=== PATIENT | female | born 1940 | race Caucasian/White ===

== ENCOUNTER 2022-02-22 00:48 | Inpatient (IN) | payer MEDICARE, BC, SELFPAY ==
[2022-02-22] VITALS (9 sets, daily range): BP systolic 113–135; BP diastolic 50–63; PULSE 60–75; RESP 16–18; TEMP 36.4–36.9; O2SAT 91–97; BMI 27.5
--- NOTE | 2022-02-22 00:57 | PC.NURSE ---
PT ARRIVED TO FLOOR VIA STRETCHER @ [id number]
--- NOTE | 2022-02-22 01:35 | EXP.HP ---
History of Present Illness *Admission Date: 02/22/22 *Reason for visit:: NSTEMI *History of present illness: With past medical history of recent diagnosis of adenocarcinoma, DVT on Paresh who presents as a transfer from [facility] for NSTEMI. She reportedly was talking on the phone this evening around 8:30 PM and noticed some left hand shaking with some difficulty speaking. She reports that the symptoms resolved within minutes. She did have another episode of this and was noted by her family to be leaning towards the left when she was walking. At that point she presented to the outside hospital. Outside hospital imaging negative for hemorrhagic or ischemic event on Noncon CT of the head. She did note to have a elevated troponin on the high-sensitivity scale of 139. Dr. Padron was consulted and recommended transfer here for further evaluation. She received 300 of Plavix at the outside hospital and transferred here for further cardiac evaluation. On my exam patient is awake alert and oriented without any distress. She does endorse same history of dysarthria and left hand weakness around 8 PM. She denies any chest pain or shortness of breath. She does endorse mild epigastric pain that is typical to her that reoccurred this evening but has subsided. She has very close follow-up with the [facility] regarding her adenocarcinoma. She was supposed to have a cardiology appointment tomorrow. She is scheduled for a PET scan and an MRI of her brain for cancer staging on March 25. Given patient's neurological symptoms that began this admission. Will obtain repeat labs now to see if renal status will support CTA of the head to rule out LVO. Will obtain brain MRI in a.m. Regarding cardiology services, Dr. Padron is aware patient and will see patient in the morning. He request patient to be placed on heparin drip and be made n.p.o. She is admitted to the hospitalist service for further evaluation management. [facility] Medical History (Updated 02/22/22 @ 08:01 by AMY Zhang) Adenocarcinoma DVT (deep venous thrombosis) High blood pressure Hypercholesteremia Neuropathy Non-Hodgkin lymphoma Pneumonia Pulmonary embolism Rheumatoid arthritis UTI (urinary tract infection) Surgical History (Updated 02/22/22 @ 04:15 by Dalia Guerrero RN) History of colon resection History of stem cell transplant History of stem cell transplant Family History (Updated 02/22/22 @ 04:14 by Dalia Guerrero RN) Father Family history of myocardial infarction Social History (Updated 02/22/22 @ 04:13 by Dalia Guerrero RN) Smoking Status: Former smoker alcohol intake: never current occupational status: other Travel in the last 8 weeks: None Review of Systems Review of Systems Review of systems:: pertinent systems reviewed and negative unless documented below Meds Home Medications and Allergies Home Medications Medication Instructions Recorded Confirmed Type albuterol sulfate 90 mcg/actuation 2 puff inhalation Q4HP PRN 02/22/22 02/22/22 History aerosol inhaler Shortness Of Breath Or Wheezing apixaban 5 mg tablet (Eliquis) 5 mg PO BID active thrombus 02/22/22 02/22/22 History carvedilol 6.25 mg tablet 6.25 mg PO BIDWMEAL blood pressure 02/22/22 02/22/22 History cholecalciferol (vitamin D3) 125 5,000 unit PO DAILY Supplement 02/22/22 02/22/22 History mcg (5,000 unit) tablet (Vitamin D3) diphenhydramine HCl 25 mg capsule 50 mg PO HS Insomnia 02/22/22 02/22/22 History (Benadryl) empagliflozin 10 mg tablet 10 mg PO DAILY Diabetes 02/22/22 02/22/22 History (Jardiance) gabapentin 800 mg tablet 800 mg PO TID Pain 02/22/22 02/22/22 History multivitamin 1 tab PO DAILY Supplement 02/22/22 02/22/22 History pravastatin 20 mg tablet 20 mg PO HS Cholesterol 02/22/22 02/22/22 History prednisone 1 mg tablet 2 mg PO DAILY Arthritis 02/22/22 02/22/22 History vitamin B12 2,500 mcg-folic acid See Rx Instructions .Rou
[2022-02-22 01:58] LABS: Basophils # 0.1 K/mm3 (0-0.2); Basophils % 0.5 % (0.1-2.0); Eosinophils # 0.1 K/mm3 (0.0-0.4); Eosinophils % 0.6 % (0.1-12.0); Hematocrit 42.5 % (37.0-47.0); Hemoglobin 14.1 g/dL (12.2-16.2); Lymphocytes # 3.2 K/mm3 (0.7-4.5); Lymphocytes % 14.6 % (10-50); Mean Corpuscular HGB Conc 33.1 g/dL (31.8-35.4); Mean Corpuscular Hemoglobin 30.4 pg (27.0-31.2); Mean Corpuscular Volume 91.7 fl (81-99); Mean Platelet Volume 8.2 fl (7.4-10.4); Monocytes # 0.8 K/mm3 (0.1-1.0); Monocytes % 3.8 % (1.7-9.3); Neutrophils # 17.7 K/mm3 (1.8-7.8); Neutrophils % 80.4 % (37.0-80.0); Platelet Count 199 K/mm3 (142-424); Red Blood Count 4.63 M/mm3 (4.20-5.40); Red Cell Distribution Width 14.1 % (11.5-17.5)
[2022-02-22 01:59] LABS: Coronavirus 19, PCR Not Detected (NotDetected); Influenza A, PCR Not Detected (NotDetected); Influenza B, PCR Not Detected (NotDetected)
[2022-02-22 02:01] LABS: MANUAL DIFFERENTIAL MANUAL DIFFERENTIAL (MANUAL DIFF)
[2022-02-22 02:10] LABS: Anion Gap 14.4 mEq/L (5-15); Blood Urea Nitrogen 30 mg/dl (7-17); Calcium 10.4 mg/dl (8.4-10.2); Carbon Dioxide 24 mmol/L (22.0-30.0); Chloride 103 mmol/L (98-107); Chol/HDL Ratio 2.8 (1-3.5); Cholesterol 172 mg/dl (140-200); Creatinine Clearance Estimated 52 mL/min (50-200); Estimated Glomerular Filt Rate 53 ml/min (>60); GFR (African American) 64 ML/MIN (>60); Glucose 112 mg/dl (74-100); HDL Cholesterol 62 mg/dl (40-60); Magnesium 2.2 mg/dl (1.6-2.3); Potassium 5.4 mmoL/L (3.5-5.1); Sodium 136 mmol/L (136-145); Triglycerides 151 mg/dl (30-150); VLDL Cholesterol 30 mg/dL (0-40)
[2022-02-22 02:17] LABS: Lymphocytes % 16 % (10-50); Neutrophils % 79 % (42-76); Platelet Estimate Normal; RBC Morphology Normal; Total Cells Counted 100
[2022-02-22 02:21] LABS: Direct LDL Cholesterol 85.11 mg/dL (100-129)
[2022-02-22 02:22] LABS: Troponin I 0.12 ng/ml (0.00-0.034)
[2022-02-22 02:29] LABS: PTT Heparin (inpatient only) 22.7 Seconds (23.6-34.0)
--- NOTE | 2022-02-22 02:35 | XR_ITS ---
PROCEDURE INFORMATION: Exam: XR Chest Exam date and time: 02/22/2022 2:41 AM Age: 81 years old Clinical indication: Shortness of breath; Additional info: Hypoxia TECHNIQUE: Imaging protocol: Radiologic exam of the chest. Views: 1 view. COMPARISON: No relevant prior studies available. FINDINGS: Lungs: Hazy opacity noted in the left upper lung adjacent to the aortic arch suggests infiltrate. Pleural spaces: Unremarkable. No pleural effusion. No pneumothorax. Heart/Mediastinum: Enlarged cardiac silhouette. Bones/joints: Unremarkable. IMPRESSION: 1. Probable medial left upper lobe infiltrate. 2. Cardiomegaly.
--- NOTE | 2022-02-22 02:52 | CT_ITS ---
PROCEDURE INFORMATION: Exam: CTA Head With Contrast, Arteriography Exam date and time: 02/22/2022 3:27 AM Age: 81 years old Clinical indication: Stroke-like symptoms; Other: ? TIA TECHNIQUE: Imaging protocol: Computed tomographic angiography of the head with contrast. Exam focused on the arteries. 3D rendering (Not supervised by radiologist): MIP and/or 3D reconstructed images were created by the technologist. Radiation optimization: All CT scans at this facility use at least one of these dose optimization techniques: automated exposure control; mA and/or kV adjustment per patient size (includes targeted exams where dose is matched to clinical indication); or iterative reconstruction. Contrast material: ISOVUE; Contrast volume: 75 ml; Contrast route: INTRAVENOUS (IV); COMPARISON: CT HEAD/BRAIN WO CON 02/22/2022 3:25 AM FINDINGS: ANTERIOR CIRCULATION: Right internal carotid artery: Intracranial segment is patent with no significant stenosis. No aneurysm. Right middle cerebral artery: No occlusion or significant stenosis. No aneurysm. Right anterior cerebral artery: No occlusion or significant stenosis. No aneurysm. Left internal carotid artery: Intracranial segment is patent with no significant stenosis. No aneurysm. Left middle cerebral artery: No occlusion or significant stenosis. No aneurysm. Left anterior cerebral artery: No occlusion or significant stenosis. No aneurysm. POSTERIOR CIRCULATION: Right vertebral artery: Dominant right vertebral artery. Left vertebral artery: No occlusion or significant stenosis. No aneurysm. Basilar artery: No occlusion or significant stenosis. No aneurysm. Right posterior cerebral artery: No occlusion or significant stenosis. No aneurysm. Left posterior cerebral artery: No occlusion or significant stenosis. No aneurysm. Cavernous Sinus: Patent venous dural sinuses and tributaries. Brain: No definite mass, mass effect, or midline shift. Cerebral ventricles: No ventriculomegaly. Bones/joints: Unremarkable. No acute fracture. Soft tissues: Unremarkable. IMPRESSION: No evidence of large vessel occlusion, vascular malformation, or aneurysm.
--- NOTE | 2022-02-22 03:09 | CT_ITS ---
PROCEDURE INFORMATION: Exam: CT Head Without Contrast Exam date and time: 02/22/2022 3:25 AM Age: 81 years old Clinical indication: Stroke-like symptoms; Other: TIA ? TECHNIQUE: Imaging protocol: Computed tomography of the head without contrast. Radiation optimization: All CT scans at this facility use at least one of these dose optimization techniques: automated exposure control; mA and/or kV adjustment per patient size (includes targeted exams where dose is matched to clinical indication); or iterative reconstruction. Other technique: STROKE PROTOCOL was implemented. COMPARISON: No relevant prior studies available. FINDINGS: Brain: Normal. No hemorrhage. Unremarkable white matter. No mass effect. Cerebral ventricles: No ventriculomegaly. Paranasal sinuses: Visualized sinuses are unremarkable. No fluid levels. Mastoid air cells: Visualized mastoid air cells are well aerated. Bones/joints: Unremarkable. No acute fracture. Soft tissues: Unremarkable. IMPRESSION: No evidence of acute intracranial hemorrhage, mass effect, or edema. ASSESSMENT: ASPECTS (Krystle Stroke Program Early CT Score) is 10.
--- NOTE | 2022-02-22 03:09 | CT_ITS ---
PROCEDURE INFORMATION: Exam: CTA Neck With Contrast Exam date and time: 02/22/2022 3:27 AM Age: 81 years old Clinical indication: Stroke-like symptoms; Other: ? TIA TECHNIQUE: Imaging protocol: Computed tomographic angiography of the neck with contrast. 3D rendering (Not supervised by radiologist): MIP and/or 3D reconstructed images were created by the technologist. Radiation optimization: All CT scans at this facility use at least one of these dose optimization techniques: automated exposure control; mA and/or kV adjustment per patient size (includes targeted exams where dose is matched to clinical indication); or iterative reconstruction. Contrast material: ISOVUE; Contrast volume: 75 ml; Contrast route: INTRAVENOUS (IV); COMPARISON: CT HEAD/BRAIN WO CON 02/22/2022 3:25 AM FINDINGS: Right common carotid artery: No stenosis. No dissection or occlusion. Right internal carotid artery: Right internal carotid artery demonstrates mild intimal thickening and calcific plaque without significant luminal narrowing (NASCET category 2, less than 50% diameter reduction). Right external carotid artery: No occlusion or stenosis of the origin. Left common carotid artery: No stenosis. No dissection or occlusion. Left internal carotid artery: Left internal carotid artery demonstrates mild intimal thickening and calcific plaque without significant luminal narrowing (NASCET category 2, less than 50% diameter reduction). Left external carotid artery: No occlusion or stenosis of the origin. Right vertebral artery: No stenosis. No dissection or occlusion. Left vertebral artery: No stenosis. No dissection or occlusion. Other arteries: Vessels tract through portion of the mass medially. Thyroid: 1.4 cm left thyroid nodule. Soft tissues: Normal. No significant soft tissue swelling. Bones/joints: Moderate cervical facet arthropathy noted throughout. No significant spinal canal stenosis. No destructive bony lesions. Lungs: Superior to the left hilus, there is dense masslike airspace disease involving an area measuring 7.8 x 6.0 x 2.4 cm concerning for tumor. Background centrilobular emphysema is noted. IMPRESSION: 1. No evidence of hemodynamically significant stenosis involving either carotid or vertebral artery systems. Minimal plaque noted. 2. There is a mass in the left upper lobe abutting the aortic arch with features of malignancy. A central mass with post obstructive change may compromise measurements. No significant mediastinal adenopathy in the scan range. COMMENTS: Consistent with the [employer]'s Incidental Findings Committee white paper (J Am Omari Radiol 2015): In patients aged 35 years and older with an incidental thyroid nodule equal to or greater than 1.[address], MRI or extrathyroidal US, further evaluation with dedicated thyroid US is recommended for patients with normal life expectancy and without comorbidities. For smaller nodules without suspicious features, no further evaluation or follow up is recommended. REFERENCES: NASCET CRITERIA. The degree of stenosis in the cervical segment of the internal carotid artery is based on NASCET criteria. Normal is no stenosis. Mild is less than 50% stenosis. Moderate is 50-69% stenosis. Severe is 70% to 99% stenosis. Total occlusion is no detectable patent lumen.
[2022-02-22 04:45] LABS: Troponin I 0.12 ng/ml (0.00-0.034)
[2022-02-22 05:00] LABS: Microscopic, Urine URINE MICROSCOPIC (MICROSCOPIC)
--- NOTE | 2022-02-22 05:01 | PC.NURSE ---
Pt is a transfer from [facility] for NSTEMI. Pt is alert and oriented x 4. Per pt and family report, pt went to ED at [facility] d/t sudden onset slurred speech and hand tremor that occurred around 2029 on 02/21, which has since resolved. Pt educated to notify staff if any of those symptoms reoccur, or if she experiences any new symptoms. Pt verbalized understanding. Neuro assessment at this time WNL. Labs and covid test obtained on arrival. Heparin gtt started and infusing per order. IV atbx also given per order. Pt has had a chest x ray, and went for a head and neck CTA this shift. Urine obtained and sent to lab. Lungs sounds - clear. BS active x 4. Monitoring serial troponins. Also monitoring pt via telemetry. Pt has no c/o at this time. Pt has been NPO since arrival to floor. Pt is to have a cardio consult and echo in the AM, as well as an MRI. Call light in reach.
[2022-02-22 05:08] LABS: Appearance,Urine CLOUDY (Clear); Bilirubin,Urine Negative (Negative); Blood, Urine 3+ (Negative); Color,Urine DK YELLOW (Yellow); Glucose,Urine (UA) 3+ (Negative); Ketones,Urine Negative (Negative); Leukocyte Esterase,Urine 2+ (Negative); Nitrate,Urine Negative (Negative); Protein,Urine TRACE (Negative); Urobilinogen,Urine 0.2 EU/dl (0.2)
[2022-02-22 05:12] LABS: Bacteria,Urine 4+ /lpf; RBC,Urine 20-50 #/hpf (0-3); WBC,Urine 20-50 #/hpf (0-3)
--- NOTE | 2022-02-22 07:15 | ECG_ITS ---
APPROVED REPORT Exam: Resting ECG HR:69 bpm ECG Measurements Heart Rate 69 AXES PA 195 P 52 QRSd 141 QRS -31 QT 401 T 119 QTc 421 Conclusion SINUS RHYTHM LEFT AXIS DEVIATION [QRS AXIS < -30] LEFT BUNDLE BRANCH BLOCK [120+ ms QRS DURATION, 80+ ms Q/S IN V1/V2, 85+ ms R IN I/aVL/V5/V6] ABNORMAL ECG UNCONFIRMED REPORT Electronically signed by : Ricardo Bhagat MD 02/22/2022 21:22:38
--- NOTE | 2022-02-22 07:20 | HMH.PHAINT1 ---
Pharmacy Intervention Comments: Home medication reconciliation completed using outpatient pharmacy list.
--- NOTE | 2022-02-22 07:51 | EXP.CARD.CON ---
History of Present Illness History of Present Illness Consult date: 02/22/22 Requesting physician: Paulie Garcia Consult reason: chest pain Chief complaint: TIA-like symptoms, non-ST elevation [place] diagnosed at outlying hospital Additional Medical History:: 1. Left upper lobe cancer/adenocarcinoma, surgery is not an option per the patient A. Oncologist previously has been Dr. Pulido in [place], [place] 2. History of tobacco use, began age 18, discontinued this year, less than 1 pack/day 3. Hypertension 4. Hyperlipidemia 5. Paroxysmal atrial fibrillation recently diagnosed, 01/2022 A. Recently started on anticoagulation 6. History of non-Hodgkin's lymphoma, status postchemotherapy and stem cell transplant approximately 1999 7. History of rheumatoid arthritis, in remission after chemotherapy since 1999 8. Remote history of partial colon resection due to colon rupture 9. Strokelike symptoms, February [address] of the head negative for acute process or masses. B. CTA of the brain, no large vessel occlusion C. CTA of the neck showing only mild ICA stenosis bilaterally. 10. Family history of coronary disease in her father. 11. Possible diabetes, 01/2022 A. Started on Jardiance therapy 12. NSTEMI, 02/21/2022, felt related to pneumonia, left lung adenocarcinoma. A. Echocardiogram pending B. Abnormal EKG with left axis deviation and left bundle branch block, chronicity unknown History of present illness: With past medical history of recent diagnosis of adenocarcinoma, DVT on Eliquis who presents as a transfer from [facility] for NSTEMI.? She reportedly was talking on the phone this evening around 8:30 PM and noticed some left hand shaking with some difficulty speaking.? She reports that the symptoms resolved within minutes.? She did have another episode of this and was noted by her family to be leaning towards the left when she was walking.? At that point she presented to the outside hospital.? Outside hospital imaging negative for hemorrhagic or ischemic event on Noncon CT of the head.? She did note to have a elevated troponin on the high-sensitivity scale of 139.? Dr. Padron was consulted and recommended transfer here for further evaluation.? She received 300 of Plavix at the outside hospital and transferred here for further cardiac evaluation. On my exam patient is awake alert and oriented without any distress.? She does endorse same history of dysarthria and left hand weakness around 8 PM.? She denies any chest pain or shortness of breath.? She does endorse mild epigastric pain that is typical to her that reoccurred this evening but has subsided.? She has very close follow-up with the [facility] regarding her adenocarcinoma.? She was supposed to have a cardiology appointment tomorrow.? She is scheduled for a PET scan and an MRI of her brain for cancer staging on March 25. Given patient's neurological symptoms that began this admission.? Will obtain repeat labs now to see if renal status will support CTA of the head to rule out LVO.? Will obtain brain MRI in a.m.? Regarding cardiology services, Dr. Padron is aware patient and will see patient in the morning.? He request patient to be placed on heparin drip and be made n.p.o. She is admitted to the hospitalist service for further evaluation management. The above per HERBERT Ornelas for Dr. Nieves Patient confirms events as noted above. She denies any chest pain, pressure or tightness overnight. Troponins have remained stable but elevated at 0.12x2. No prior history of coronary disease but patient recently diagnosed with what sounds like paroxysmal atrial fibrillation and possible DVT for which she was placed on carvedilol and oral anticoagulation therapy. She was supposed to have a follow-up with a repaire[facility] in [place] today. She was recently hospitalized at [facility] 2 weeks ago with a diagnosis of lung cancer being made at that time. Her oncologist is Cande
[2022-02-22 07:54] LABS: Basophils # 0.1 K/mm3 (0-0.2); Basophils % 0.5 % (0.1-2.0); Eosinophils # 0.2 K/mm3 (0.0-0.4); Eosinophils % 0.8 % (0.1-12.0); Hemoglobin 13.4 g/dL (12.2-16.2); Lymphocytes # 3.7 K/mm3 (0.7-4.5); Lymphocytes % 19.8 % (10-50); Mean Corpuscular HGB Conc 32.6 g/dL (31.8-35.4); Mean Corpuscular Hemoglobin 30.2 pg (27.0-31.2); Mean Corpuscular Volume 92.4 fl (81-99); Monocytes # 0.7 K/mm3 (0.1-1.0); Monocytes % 3.9 % (1.7-9.3); Neutrophils # 14.1 K/mm3 (1.8-7.8); Platelet Count 216 K/mm3 (142-424); Red Blood Count 4.43 M/mm3 (4.20-5.40); Red Cell Distribution Width 14.1 % (11.5-17.5); White Blood Count 18.8 K/mm3 (4.8-10.8)
--- NOTE | 2022-02-22 08:04 | HMH.PHAHEP ---
[facility] Pharmacy Heparin Dosing Demographic Data Admission date:: 02/22/22 Date: 02/22/22 Time: 08:04 Allergies Allergy/AdvReac Type Severity Reaction Status Date / Time No Known Allergies Allergy Verified 02/22/22 01:05 Height: 1.65 m Weight: 75 kg Indication Medication therapy:: Heparin Current Indications:: NSTEMI Current Active Problems (Updated 02/23/22 @ 08:32 by AMY Zhang) Adenocarcinoma (Acute) UTI (urinary tract infection) (Acute) NSTEMI (non-ST elevated myocardial infarction) (Acute) TIA (transient ischemic attack) (Acute) History of DVT (deep vein thrombosis) (Acute) CVA?: No Bleeding problem?: No Kidney disease?: No DE?: No Desired PTT range:: 50-75 seconds Labs Anticoagulation Lab Results:: 02/22/22 02/22/22 01:30 07:38 Hgb 14.1 13.4 Hct 42.5 41.0 Plt Count 199 216 Monitoring Dose Monitor 1: Date: 02/22/22 Time: 01:30 PTT Result:: 22.7 Infusion Rate:: STARTED INFUSION WITH HEPARIN 18 ML/HR (900 UNITS/HR). 4000 UNIT BOLUS WAS ORDERED. Dose Monitor 2: Date: 02/22/22 Time: 08:30 PTT Result:: 66.0 Infusion Rate:: heparin 900 units/hr (18 ml/hr) Comment:: Heparin drip stopped and restarted by nurse, then stopped again and restarted after procedure with Dr. Parkinson. Dose Monitor 3: Date: 02/22/22 Time: 13:00 PTT Result:: 33.3 Infusion Rate:: RESTARTED AT HEPARIN 900 UNITS/HR (18 ML/HR). REBOLUSED AT 4000 UNITS. Dose Monitor 4: Date: 02/22/22 Time: 20:00 PTT Result:: 65.8 Infusion Rate:: CONTINUE WITH 900 UNITS/HR (18 ML/HR) Dose Monitor 5: Date: 02/23/22 Time: 02:00 PTT Result:: 46.0 Infusion Rate:: INCREASE HEPARIN TO 1050 UNITS/HR (21 ML/HR) AND REBOLUS WITH 3000 UNITS/HR. Dose Monitor 6: Date: 02/23/22 Time: 08:30 PTT Result:: 78.3 Infusion Rate:: CONTINUE WITH HEPARIN 1050 UNITS/HR (21 ML/HR) Core Measures Is INR > or = 2 at discharge?: No Most Recent Labs:: Laboratory Results - last 24 hr 02/22/22 01:30: WBC 22.0 H*, RBC 4.63, Hgb 14.1, Hct 42.5, MCV 91.7, MCH 30.4, MCHC 33.1, RDW 14.1, Plt Count 199, MPV 8.2, Neut % (Auto) 80.4 H, Lymph % (Auto) 14.6, [place] % (Auto) 3.8, Eos % (Auto) 0.6, Baso % (Auto) 0.5, Neut # (Auto) 17.7 H, Lymph # (Auto) 3.2, [place] # (Auto) 0.8, Eos # (Auto) 0.1, Baso # (Auto) 0.1, Total Counted 100, Neutrophils % (Manual) 79 H, Band Neutrophils % 5.0, Lymphocytes % (Manual) 16, Platelet Estimate Normal, RBC Morphology Normal 02/22/22 01:30: Sodium 136, Potassium 5.4 H, Chloride 103, Carbon Dioxide 24, Anion Gap 14.4, BUN 30 H, Creatinine 1.00, Estimated Creat Clear 52, Estimated GFR 53 L, Est GFR ( Amer) 64, Glucose 112 H, Calcium 10.4 H, Magnesium 2.2, Triglycerides 151 H, Cholesterol 172, LDL Cholesterol Direct 85.11 L, VLDL Cholesterol 30, HDL Cholesterol 62 H, Cholesterol/HDL Ratio 2.8 02/22/22 01:30: APTT 22.7 L 02/22/22 01:30: Troponin I 0.12 H 02/22/22 01:30: Hemoglobin A1c 6.0 02/22/22 01:30: SARS-CoV-2 (PCR) Not detected, Influenza A Untype (PCR) Not detected, Influenza Type B (PCR) Not detected 02/22/22 03:55: Troponin I 0.12 H 02/22/22 04:18: Urine Color Dk yellow, Urine Appearance Cloudy, Urine pH 6.0, Ur Specific [place] 1.010, Urine Protein Trace, Urine Glucose (UA) 3+, Urine Ketones Negative, Urine Blood 3+, Urine Nitrate Negative, Urine Bilirubin Negative, Urine Urobilinogen 0.2, Ur Leukocyte Esterase 2+ A, Urine RBC 20-50, Urine WBC 20-50, Urine Bacteria 4+ 02/22/22 07:38: WBC 18.8 H, RBC 4.43, Hgb 13.4, Hct 41.0, MCV 92.4, MCH 30.2, MCHC 32.6, RDW 14.1, Plt Count 216, MPV 8.0, Neut % (Auto) 75.0, Lymph % (Auto) 19.8, [place] % (Auto) 3.9, Eos % (Auto) 0.8, Baso % (Auto) 0.5, Neut # (Auto) 14.1 H, Lymph # (Auto) 3.7, [place] # (Auto) 0.7, Eos # (Auto) 0.2, Baso # (Auto) 0.1 If INR was < than 2.0 why was therapy stopped?: CHANGED TO LOVENOX Were Heparin and Warfarin
[2022-02-22 08:05] LABS: Chloride 106 mmol/L (98-107); Potassium 4.4 mmoL/L (3.5-5.1); Sodium 138 mmol/L (136-145)
[2022-02-22 08:08] LABS: Alanine Aminotransferase 19 U/L (12-78); Anion Gap 13.4 mEq/L (5-15); Aspartate Amino Transferase 27 U/L (14-36); Bilirubin,Unconjugated 0.2 mg/dL (0.0-1.1); Blood Urea Nitrogen 26 mg/dl (7-17); Calcium 9.9 mg/dl (8.4-10.2); Carbon Dioxide 23 mmol/L (22.0-30.0); Creatinine Clearance Estimated 52 mL/min (50-200); Estimated Glomerular Filt Rate 60 ml/min (>60); GFR (African American) 73 ML/MIN (>60); Glucose 99 mg/dl (74-100)
[2022-02-22 08:09] LABS: Albumin Level 3.4 g/dl (3.5-5.0); Alkaline Phosphatase 111 U/L (38-126); Bilirubin,Direct 0.1 mg/dl (0.0-0.4); Bilirubin,Indirect 0.2 mg/dL (0.0-0.9); Bilirubin,Total 0.3 mg/dl (0.2-1.3); Total Protein,Serum 6.1 g/dl (6.3-8.2)
--- NOTE | 2022-02-22 08:10 | PC.NURSE ---
[facility] critical lab for PTT, provider AMY Flores notified
--- NOTE | 2022-02-22 11:12 | MR_ITS ---
FINAL REPORT CLINICAL HISTORY: STROKE. SLURRED SPEECH. RECURRENT EVENTS FACIAL DROOP, DYSARTHRIA. FINDINGS: Multiplanar MR imaging of the brain was performed without contrast. There is mild age-appropriate atrophy. There are scattered foci of increased T2 signal in the cerebral white matter that have a nonspecific appearance but likely represent mild chronic ischemic/gliotic changes. There is no evidence of intracranial hemorrhage or mass. No abnormal ventricular dilatation is identified. There are multifocal areas of restricted diffusion consistent with multifocal, bilateral acute infarcts. Largest is in the right occipital lobe measuring 31 mm. The posterior fossa and brainstem are unremarkable. Normal major vessel vascular flow voids are seen. IMPRESSION: Age-appropriate atrophy and mild chronic ischemic/gliotic changes. Acute, multifocal, bilateral infarcts. The patient's nurse, Betty Juan, was notified of these findings at 2:17 p.m.. Reviewed, Interpreted and Dictated by Talib Kraus III, MD Transcribed by Stephanie Crook Authenticated and [facility]
--- NOTE | 2022-02-22 11:21 | US_ITS ---
FINAL REPORT TECHNIQUE: Sonographic images were obtained of the retroperitoneum. CLINICAL HISTORY: Hematuria, lung cancer recent dx FINDINGS: The right kidney measures 10.5 cm. The left kidney measures 10.0 cm. There is a presumed stone or stones in the upper pole of the right kidney. The spleen measures within normal limits. IMPRESSION: Presumed stone or stones in the upper pole the right kidney. If indicated, CT renal stone protocol. Reviewed, Interpreted and Dictated by Talib Kraus III, MD Transcribed by Raymon Pabon Authenticated and [facility]
--- NOTE | 2022-02-22 11:21 | US_ITS ---
FINAL REPORT CLINICAL HISTORY: hematuria gross -- pt started on blood thinner in hosp FINDINGS: ULTRASOUND BLADDER Pre and postvoid sonographic images were obtained of the urinary bladder. There is significant postvoid residual in the bladder of approximately 384 mL. There is a suspected bladder diverticulum. IMPRESSION: Significant postvoid residual. 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 Reviewed, Interpreted and Dictated by Talib Kraus III, MD Transcribed by Raymon Pabon Authenticated and [facility]
[2022-02-22 14:36] LABS: PTT Heparin (inpatient only) 33.3 Seconds (23.6-34.0)
--- NOTE | 2022-02-22 16:30 | PC.NURSE ---
Patient VSS, BLL clear, has blood in urine, had 1 episode when returning from bathroom of feeling weird per the tech and the daughter at bedside patients speech was slurred for just a couple of minutes and returned back to normal. Per daughter and tech patient had slight droop with smile on left side. Hospitalist and Cardiology notified. patient had multiple tests run today with confirmed MRI showing stroke. Patient has been placed on [facility] waiting list for the stroke unit. Patient continues on Heparin drip at 900 units (18mL)/hr. with a 4000 unit bolus IVP at 16:14. Patient shows no s/s of acute distress noted.
[2022-02-22 18:34] LABS: Troponin I 0.13 ng/ml (0.00-0.034)
[2022-02-22 20:52] LABS: PTT Heparin (inpatient only) 65.8 Seconds (23.6-34.0)
--- NOTE | 2022-02-22 20:55 | PC.NURSE ---
spoke with lab of critical ptt of 65.8, name and verified, reported this lab to the hospitalist
[2022-02-23] VITALS (12 sets, daily range): BP systolic 99–114; BP diastolic 43–56; PULSE 70–83; RESP 16–18; TEMP 36.6–37.1; O2SAT 94–97; BMI 27.5
--- NOTE | 2022-02-23 03:49 | PC.NURSE ---
notified nightwatch of ptt of 46, orders to change rate of heparin gtt to 1050 ml/hr and give 3,000 unit bolus of heparin
[2022-02-23 06:48] LABS: Basophils # 0.1 K/mm3 (0-0.2); Basophils % 0.7 % (0.1-2.0); Eosinophils # 0.5 K/mm3 (0.0-0.4); Eosinophils % 2.5 % (0.1-12.0); Hematocrit 41.1 % (37.0-47.0); Hemoglobin 13.3 g/dL (12.2-16.2); Lymphocytes # 3.4 K/mm3 (0.7-4.5); Lymphocytes % 17.6 % (10-50); Mean Corpuscular HGB Conc 32.3 g/dL (31.8-35.4); Mean Corpuscular Hemoglobin 30.2 pg (27.0-31.2); Mean Corpuscular Volume 93.6 fl (81-99); Mean Platelet Volume 7.6 fl (7.4-10.4); Neutrophils # 14.3 K/mm3 (1.8-7.8); Neutrophils % 74.3 % (37.0-80.0); Platelet Count 219 K/mm3 (142-424); Red Blood Count 4.39 M/mm3 (4.20-5.40); Red Cell Distribution Width 14.2 % (11.5-17.5); White Blood Count 19.2 K/mm3 (4.8-10.8)
[2022-02-23 06:52] LABS: MANUAL DIFFERENTIAL MANUAL DIFFERENTIAL (MANUAL DIFF)
[2022-02-23 06:54] LABS: Chloride 107 mmol/L (98-107); Potassium 4.1 mmoL/L (3.5-5.1); Sodium 137 mmol/L (136-145)
[2022-02-23 06:57] LABS: Alanine Aminotransferase 15 U/L (12-78); Albumin Level 2.9 g/dl (3.5-5.0); Albumin/Globulin Ratio 1.1 (1.1-1.8); Alkaline Phosphatase 107 U/L (38-126); Anion Gap 9.1 mEq/L (5-15); Aspartate Amino Transferase 23 U/L (14-36); Bilirubin,Total 0.4 mg/dl (0.2-1.3); Blood Urea Nitrogen 22 mg/dl (7-17); Carbon Dioxide 25 mmol/L (22.0-30.0); Creatinine Clearance Estimated 52 mL/min (50-200); Estimated Glomerular Filt Rate 60 ml/min (>60); GFR (African American) 73 ML/MIN (>60); Globulin 2.7 g/dL (1.3-3.2); Total Protein,Serum 5.6 g/dl (6.3-8.2)
[2022-02-23 06:58] LABS: Calcium 9.4 mg/dl (8.4-10.2); Glucose 100 mg/dl (74-100)
[2022-02-23 07:36] LABS: Eosinophils % 2 % (0-3); Lymphocytes % 19 % (10-50); Monocytes % 8 % (2-9); Neutrophils % 71 % (42-76); Platelet Estimate Normal; RBC Morphology Normal; Total Cells Counted 100
--- NOTE | 2022-02-23 08:26 | EXP.CARD.PN ---
Subjective Subjective Date: 02/23/22 Time: 08:26 Principal diagnosis: Lung CA, CVA, CM, Hematuria Interval history: 81-year-old white female in bed in no acute distress. Still having slurred speech symptoms when she gets up and goes to the bathroom which resolved when she is back in bed lying down. She continues on IV heparin. MRI of the brain yesterday showed areas of acute infarct. We are awaiting transfer to a tertiary facility with inpatient neurology, cardiology, oncology and pulmonology. Echocardiogram yesterday showed continued cardiomyopathy with EF of 25-30%. No significant valve disease. She has a mild pericardial effusion without evidence of tamponade. Renal ultrasound showed evidence of nephrolithiasis which is contributing to her hematuria in addition to her UTI. Lung cancer with planned pulmonology follow-up tomorrow on an outpatient basis as previously scheduled from her [facility] admission earlier this month Exam Data for Last 24 hours Vital signs and Labs for Last 24 Hours: Temp Pulse Resp BP Pulse Ox 98.6 F 83 16 114/52 L 95 02/23/22 07:20 02/23/22 07:20 02/23/22 07:20 02/23/22 07:20 02/23/22 07:20 Laboratory Results - last 24 hr 02/22/22 04:18: Urine Color Dk yellow, Urine Appearance Cloudy, Urine pH 6.0, Ur Specific [place] 1.010, Urine Protein Trace, Urine Glucose (UA) 3+, Urine Ketones Negative, Urine Blood 3+, Urine Nitrate Negative, Urine Bilirubin Negative, Urine Urobilinogen 0.2, Ur Leukocyte Esterase 2+ A, Urine RBC 20-50, Urine WBC 20-50, Urine Bacteria 4+ 02/22/22 07:38: Troponin I 0.13 H 02/22/22 14:03: APTT 33.3 02/22/22 20:25: APTT 65.8 H* 02/23/22 02:40: APTT 46.0 H 02/23/22 06:34: WBC 19.2 H, RBC 4.39, Hgb 13.3, Hct 41.1, MCV 93.6, MCH 30.2, MCHC 32.3, RDW 14.2, Plt Count 219, MPV 7.6, Neut % (Auto) 74.3, Lymph % (Auto) 17.6, [place] % (Auto) 5.0, Eos % (Auto) 2.5, Baso % (Auto) 0.7, Neut # (Auto) 14.3 H, Lymph # (Auto) 3.4, [place] # (Auto) 1.0, Eos # (Auto) 0.5 H, Baso # (Auto) 0.1, Total Counted 100, Neutrophils % (Manual) 71, Lymphocytes % (Manual) 19, Monocytes % (Manual) 8, Eosinophils % (Manual) 2, Platelet Estimate Normal, RBC Morphology Normal 02/23/22 06:34: Sodium 137, Potassium 4.1, Chloride 107, Carbon Dioxide 25, Anion Gap 9.1, BUN 22 H, Creatinine 0.90, Estimated Creat Clear 52, Estimated GFR 60, Est GFR ( Amer) 73, Glucose 100, Calcium 9.4, Total Bilirubin 0.4, AST 23, ALT 15, Alkaline Phosphatase 107, Total Protein 5.6 L, Albumin 2.9 L D, Globulin 2.7, Albumin/Globulin Ratio 1.1 I & O for Last 24 hours: Intake & Output 02/20/22 02/21/22 02/22/22 02/23/22 11:59 11:59 11:59 11:59 Intake Total 2189 / 2189 Output Total 1000 / 1000 1650 / 1650 Balance -1000 / -1000 539 / 539 Weight 165 lb 5.547 oz Microbiology Reports for the Last 24 Hours: Microbiology 02/22/22 04:18 Urine,Clean Catch Urine Culture - Preliminary Gram Negative Rods *Routine Respiratory Exam Respiratory: Present CTA bilaterally; Absent rales *Routine Cardiovascular Exam Cardiovascular: Present RRR; Absent murmur, gallop or rubs *Routine Extremities Exam Extremities: Absent cyanosis, clubbing or edema *Routine Neurological Exam Neurological: Present alert, oriented X3 and normal speech Progress Note: A&P Assessment and plan (1) CVA (cerebral vascular accident): Status: Acute (2) NSTEMI (non-ST elevated myocardial infarction): Status: Acute (3) Adenocarcinoma: Status: Acute (4) UTI (urinary tract infection): Status: Acute (5) Nephrolithiasis: Status: Acute (6) Cardiomyopathy: Status: Acute (7) History of DVT (deep vein thrombosis): Status: Acute Assessment and Plan Assessment and Plan for All Diagnoses:: 1. CVA, bilateral infarcts noted on brain MRI. On IV heparin. Awaiting transfer to tertiary center. 2. Cardiomyopathy with NSTEMI (likely type 2 due to recent PE, pneumonia). EF 25-30% with infe
[2022-02-23 09:35] LABS: PTT Heparin (inpatient only) 78.3 Seconds (23.6-34.0)
--- NOTE | 2022-02-23 10:41 | PC.NURSE ---
Patient had another episode of slurred speech in the bathroom and a new episode just now with taking oral medication of numbness and slurred speech. Provider notified.
--- NOTE | 2022-02-23 10:44 | EXP.ACUTE.PN ---
Subjective *Date: 02/23/22 *Time: 15:32 Interval history: Patient initially had no complaints this morning. Has morning went on however she complained of left-sided facial weakness. Initial exam showed no focal neurologic symptoms. An hour after rounds however, she developed left-sided droop of mouth, some weakness in left upper extremity, and mild dysarthria. Denies any nausea, vomiting, headache, chest pain. Mild shortness of breath. Oxygen saturations appropriate in the low 90s on room air. Afebrile. Medical Exam Vital signs and Labs for Last 24 Hours: Temp Pulse Resp BP Pulse Ox 98.6 F 81 16 114/52 L 95 02/23/22 07:20 02/23/22 10:13 02/23/22 07:20 02/23/22 07:20 02/23/22 07:20 Laboratory Results - last 24 hr 02/22/22 04:18: Urine Color Dk yellow, Urine Appearance Cloudy, Urine pH 6.0, Ur Specific [place] 1.010, Urine Protein Trace, Urine Glucose (UA) 3+, Urine Ketones Negative, Urine Blood 3+, Urine Nitrate Negative, Urine Bilirubin Negative, Urine Urobilinogen 0.2, Ur Leukocyte Esterase 2+ A, Urine RBC 20-50, Urine WBC 20-50, Urine Bacteria 4+ 02/22/22 07:38: Troponin I 0.13 H 02/22/22 14:03: APTT 33.3 02/22/22 20:25: APTT 65.8 H* 02/23/22 02:40: APTT 46.0 H 02/23/22 06:34: WBC 19.2 H, RBC 4.39, Hgb 13.3, Hct 41.1, MCV 93.6, MCH 30.2, MCHC 32.3, RDW 14.2, Plt Count 219, MPV 7.6, Neut % (Auto) 74.3, Lymph % (Auto) 17.6, [place] % (Auto) 5.0, Eos % (Auto) 2.5, Baso % (Auto) 0.7, Neut # (Auto) 14.3 H, Lymph # (Auto) 3.4, [place] # (Auto) 1.0, Eos # (Auto) 0.5 H, Baso # (Auto) 0.1, Total Counted 100, Neutrophils % (Manual) 71, Lymphocytes % (Manual) 19, Monocytes % (Manual) 8, Eosinophils % (Manual) 2, Platelet Estimate Normal, RBC Morphology Normal 02/23/22 06:34: Sodium 137, Potassium 4.1, Chloride 107, Carbon Dioxide 25, Anion Gap 9.1, BUN 22 H, Creatinine 0.90, Estimated Creat Clear 52, Estimated GFR 60, Est GFR ( Amer) 73, Glucose 100, Calcium 9.4, Total Bilirubin 0.4, AST 23, ALT 15, Alkaline Phosphatase 107, Total Protein 5.6 L, Albumin 2.9 L D, Globulin 2.7, Albumin/Globulin Ratio 1.1 02/23/22 09:00: APTT 78.3 H* I & O for Labs for Last 24 Hours: Intake & Output 02/20/22 02/21/22 02/22/22 02/23/22 23:59 23:59 23:59 23:59 Intake Total 1180 / 1180 1009 / 1009 Output Total 2300 / 2300 350 / 350 Balance -1120 / -1120 659 / 659 Weight 75 kg Microbiology Reports for the Last 24 Hours: Microbiology 02/22/22 04:18 Urine,Clean Catch Urine Culture - Preliminary Gram Negative Rods Head: Present atraumatic and normocephalic ENT: Present normal exam Neck: Present normal inspection Respiratory: Present CTA bilaterally; Absent wheezes or crackles Cardiac: Present Reg Rate and Rhythm and S1/S2 GI: Present soft and distention; Absent tenderness Extremities: Present normal inspection Skin: Present intact; Absent cyanosis or erythema Comment:: Initial exam on rounds with intact cranial nerves II through XII, no focal motor or sensory deficits in upper or lower extremities. Repeat exam an hour after rounds, left-sided droop of mouth/asymmetric smile. Tingling sensation around left side of mouth. Left upper extremity weakness and heaviness. Strength 3/5 in left upper extremity. Assessment and Plan *Assessment and plan (1) CVA (cerebral vascular accident): Status: Acute Category: Medical Code(s): I63.9 - Cerebral infarction, unspecified (2) Obstructive pneumonia: Status: Acute Category: Medical Code(s): J18.9 - Pneumonia, unspecified organism (3) UTI (urinary tract infection): Status: Acute Category: Medical Code(s): N39.0 - Urinary tract infection, site not specified (4) NSTEMI (non-ST elevated myocardial infarction): Status: Acute Category: Medical Code(s): I21.4 - Non-ST elevation (NSTEMI) myocardial infarction (5) Hematuria: Status: Acute Category: Medical Code(s):
--- NOTE | 2022-02-23 13:16 | ECG_ITS ---
APPROVED REPORT Exam: Resting ECG HR:75 bpm ECG Measurements Heart Rate 75 AXES CO 168 P 26 QRSd 141 QRS -29 QT 386 T 127 QTc 414 Conclusion SINUS RHYTHM LEFT BUNDLE BRANCH BLOCK [120+ ms QRS DURATION, 80+ ms Q/S IN V1/V2, 85+ ms R IN I/aVL/V5/V6] ABNORMAL ECG UNCONFIRMED REPORT Electronically signed by : Ricardo Bhagat MD 02/23/2022 20:52:01
--- NOTE | 2022-02-23 17:30 | PC.NURSE ---
Patient VSS, Heparin D/C'd and Lovenox started, B/L clear to auscultation, continues with blood in urine. 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 Pending [facility] transfer, has been escalated to top of list waiting for bed assignment.
--- NOTE | 2022-02-23 18:36 | PC.NURSE ---
[facility] called, still no bed. They will update us again closer to morning
[2022-02-24] VITALS (12 sets, daily range): BP systolic 92–128; BP diastolic 52–78; PULSE 70–96; RESP 16–19; TEMP 36.4–37.1; O2SAT 93–96; BMI 27.1
--- NOTE | 2022-02-24 05:05 | PC.NURSE ---
NO ACUTE EVENTS THIS SHIFT. PT HAS SLEPT WELL THIS SHIFT. LUNG SOUNDS ARE CLEAR AND PT IS TOLERATING ROOM AIR WELL. NIH SCALES HAVE BEEN 1-2 THIS SHIFT. PTS VOICE HAS BEEN CLEAR AND APPROPRIATE. NO SIGNS OF FACIAL DROOP. PT HAS EXHIBITED SOME EXTREMITY DRIFTING IN HER LEFT LEG BUT IS MINIMAL. 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 PT HAS BEEN GETTING UP TO THE BEDSIDE COMMODE WITH STANDBY ASSIST. URINE HAS PROFOUND HEMATURIA. MD IS AWARE. PT HAS REMAINED ALERT AND ORIENTED X4. REMAINS ON WAIT LIST AT . VSS.
[2022-02-24 07:21] LABS: Basophils # 0.1 K/mm3 (0-0.2); Basophils % 0.6 % (0.1-2.0); Eosinophils # 0.4 K/mm3 (0.0-0.4); Eosinophils % 2.9 % (0.1-12.0); Hematocrit 35.3 % (37.0-47.0); Hemoglobin 11.8 g/dL (12.2-16.2); Lymphocytes # 3.2 K/mm3 (0.7-4.5); Lymphocytes % 22.3 % (10-50); Mean Corpuscular HGB Conc 33.4 g/dL (31.8-35.4); Mean Corpuscular Hemoglobin 31.3 pg (27.0-31.2); Mean Corpuscular Volume 93.8 fl (81-99); Mean Platelet Volume 7.5 fl (7.4-10.4); Monocytes # 0.7 K/mm3 (0.1-1.0); Monocytes % 4.8 % (1.7-9.3); Neutrophils % 69.4 % (37.0-80.0); Platelet Count 195 K/mm3 (142-424); Red Blood Count 3.76 M/mm3 (4.20-5.40); Red Cell Distribution Width 14.2 % (11.5-17.5); White Blood Count 14.4 K/mm3 (4.8-10.8)
[2022-02-24 07:24] LABS: Sodium 139 mmol/L (136-145)
[2022-02-24 07:25] LABS: Potassium 4.3 mmoL/L (3.5-5.1)
[2022-02-24 07:27] LABS: Anion Gap 10.3 mEq/L (5-15); Blood Urea Nitrogen 15 mg/dl (7-17); Carbon Dioxide 23 mmol/L (22.0-30.0); Chloride 110 mmol/L (98-107); Creatinine Clearance Estimated 52 mL/min (50-200); Estimated Glomerular Filt Rate 53 ml/min (>60); GFR (African American) 64 ML/MIN (>60)
[2022-02-24 07:28] LABS: Albumin Level 2.8 g/dl (3.5-5.0); Albumin/Globulin Ratio 1.1 (1.1-1.8); Globulin 2.6 g/dL (1.3-3.2); Total Protein,Serum 5.4 g/dl (6.3-8.2)
[2022-02-24 07:30] LABS: Alanine Aminotransferase 12 U/L (12-78); Alkaline Phosphatase 95 U/L (38-126); Aspartate Amino Transferase 21 U/L (14-36); Bilirubin,Total 0.3 mg/dl (0.2-1.3); Calcium 9.3 mg/dl (8.4-10.2); Glucose 100 mg/dl (74-100)
--- NOTE | 2022-02-24 09:37 | EXP.CARD.PN ---
Subjective Subjective Date: 02/24/22 Time: 09:37 Principal diagnosis: Lung CA, CVA, CM, Hematuria Interval history: 81-year-old white female in bed in no acute distress. Denies any chest pain, pressure or tightness. She does continue to have some intermittent slurred speech. She now complains of some right leg pain which sounds like sciatic nerve issue. Strength in the right leg is equal to the left leg. She also has some neuropathy of the left hand of the thumb first and second finger. She continues to have hematuria. Exam Data for Last 24 hours Vital signs and Labs for Last 24 Hours: Temp Pulse Resp BP Pulse Ox 97.6 F 79 17 128/52 L 94 L 02/24/22 07:31 02/24/22 07:31 02/24/22 07:31 02/24/22 07:31 02/24/22 07:31 Laboratory Results - last 24 hr 02/24/22 07:03: WBC 14.4 H, RBC 3.76 L, Hgb 11.8 L, Hct 35.3 L, MCV 93.8, MCH 31.3 H, MCHC 33.4, RDW 14.2, Plt Count 195, MPV 7.5, Neut % (Auto) 69.4, Lymph % (Auto) 22.3, [place] % (Auto) 4.8, Eos % (Auto) 2.9, Baso % (Auto) 0.6, Neut # (Auto) 10.0 H, Lymph # (Auto) 3.2, [place] # (Auto) 0.7, Eos # (Auto) 0.4, Baso # (Auto) 0.1 02/24/22 07:03: Sodium 139, Potassium 4.3, Chloride 110 H, Carbon Dioxide 23, Anion Gap 10.3, BUN 15 D, Creatinine 1.00, Estimated Creat Clear 52, Estimated GFR 53 L, Est GFR ( Amer) 64, Glucose 100, Calcium 9.3, Total Bilirubin 0.3, AST 21, ALT 12, Alkaline Phosphatase 95, Total Protein 5.4 L, Albumin 2.8 L, Globulin 2.6, Albumin/Globulin Ratio 1.1 I & O for Last 24 hours: Intake & Output 02/21/22 02/22/22 02/23/22 02/24/22 11:59 11:59 11:59 11:59 Intake Total 2189 / 2189 1661 / 1661 Output Total 1000 / 1000 1650 / 1650 1400 / 1400 Balance -1000 / -1000 539 / 539 261 / 261 Weight 165 lb 5.547 oz 165 lb 5.547 oz 163 lb 3.2 oz Microbiology Reports for the Last 24 Hours: Microbiology 02/23/22 10:25 Sputum - Expectorated Sputum Gram Stain - Final 02/22/22 04:18 Urine,Clean Catch Urine Culture - Preliminary Gram Negative Rods Constitutional Constitutional: no acute distress *Routine Respiratory Exam Respiratory: Present CTA bilaterally; Absent rhonchi or wheezes *Routine Cardiovascular Exam Cardiovascular: Present RRR; Absent murmur, gallop or rubs *Routine Extremities Exam Extremities: Absent edema Progress Note: A&P Assessment and plan (1) CVA (cerebral vascular accident): Status: Acute (2) Obstructive pneumonia: Status: Acute (3) UTI (urinary tract infection): Status: Acute (4) NSTEMI (non-ST elevated myocardial infarction): Status: Acute (5) Hematuria: Status: Acute (6) History of DVT (deep vein thrombosis): Status: Acute (7) Adenocarcinoma: Status: Acute (8) Nephrolithiasis: Status: Chronic (9) Cardiomyopathy: Status: Chronic Assessment and Plan Assessment and Plan for All Diagnoses:: 1. CVA, bilateral infarcts noted on brain MRI. Now on Lovenox therapy. Awaiting transfer to tertiary center. 2. Cardiomyopathy with NSTEMI (likely type 2 due to recent PE, pneumonia). EF 25-30% with inferior and inferoseptal wall hypokinesis. Septal, anteroseptal and apical solis are akinetic. Patient will need ischemic evaluation in the future. We will discontinue carvedilol therapy due to borderline low blood pressure at times with recurrent CVA symptoms. Patient is unable to tolerate goal-directed medical therapy for cardiomyopathy due to low blood pressure and recurrent exacerbation of CVA symptoms. 3. Lung cancer, defer to pulmonology and oncology. 4. Hematuria with nephrolithiasis and UTI, on antibiotic therapy. Continue to monitor H&H. Hemoglobin 11.8 today 5. Dyslipidemia, on statin therapy. Awaiting transfer to [facility].
--- NOTE | 2022-02-24 11:57 | HMH.OTEV ---
OT Inpatient Evaluation Rehab OT IP Evaluation Start: 02/24/22 10:48 Freq: ONCE Status: Complete Protocol: Document 02/24/22 11:48 [facility] (Rec: 02/24/22 11:57 [facility] [id number]) Rehab OT IP Assessment Subjective History Pt oriented x 3 on arrival. Pt agreeable to engage in therapy evaluation. Pt was admitted via transfer from outside hospital on 02/22/22 due to NSTEMI. She also had epsisodes of weakness on left side with left side facial droop. After a MRI pt was diagnosed with Acute, multifocal, bilateral infarcts . At this time, she is awaiting to transferred to [facility] in order to follow up with her doctor treating her adenocarcinoma. Prior to being in the hosptial , pt was living alone. She claims she was independent with all ADLs and IADLs. She did no use any type of AE during ambulation and she was still driving indepenently. Pt has a past medical history of: Adenocarcinoma DVT (deep venous thrombosis) High blood pressure Hypercholesteremia Neuropathy Non-Hodgkin lymphoma Pneumonia Pulmonary embolism Rheumatoid arthritis UTI (urinary tract infection) Subjective My right hip is hurting. Objective Patient Orientation Person,Place,Birthday Upper Extremity Gross ROM Min Limitation <25% Shoulder ROM Limitations Muscle Weakness Elbow ROM Limitations Muscle Weakness Wrist Limitations of Range of Motion Muscle Weakness Transfer Training Sit/Stand Transfer Assist Level Contact Guard/Hand Hold Chair Transfer Ability Supervision/Stand by,Contact Guard/Hand Hold Chair Transfer Technique Sit to/from Ambulatory Chair Transfer Assistive Devices None Overall Commode/Toilet Transfer Ability Assistance x1 Commode/Toilet Transfer Technique Sit to/from Am
--- NOTE | 2022-02-24 11:58 | HMH.PTEV ---
Physical Therapy Evaluation Rehab PT IP Evaluation Start: 02/24/22 10:48 Freq: ONCE Status: Active Protocol: Document 02/24/22 11:51 [facility] (Rec: 02/24/22 11:58 [facility] [id number]) Subjective/History History History This is the initial IP PT evaluation for Neda Pat . 81-year-old female with recent diagnosis of left upper lobe adenocarcinoma in January. Was on Eliquis for VTE prophylaxis. Presented with strokelike symptoms as transfer from outside hospital where she had concern for an NSTEMI. At this time patient' s primary issue is multifocal stroke, left-sided acute motor and sensory deficits, pneumonia, hematuria, UTI. Subjective Subjective Pt reports feeling better - did c/o pain in R hip and LE ( possibly due to immobility) for last several days. Pt reports her L 3,4,5 fingers were numb this morning but that has subsided. Rehab PT IP Eval Objective Appearance Patient Behavior Appropriate,Cooperative Patient Orientation Place,Name,Birthday,Year, Situation Difficulty following instructions none Speech Pattern Clear,Appropriate Ambulation Patient Able to Ambulate Yes Ambulation Observation IP General Gait Pattern Observation Shuffling Step Ambulation Distance (feet) 55 Ambulation Assistive Device None Ambulation Ability Supervision/Stand by,Contact Guard/Hand Hold Balance Ability to Arise Able, uses arms to help Sitting Balance Steady, safe Standing Balance Narrow stance w/o support Dynamic Sitting Balance Ability Normal Dynamic Standing Balance Ability Good Transfers Bed Transfer Ability Independent Chair Transfer Ability Supervision/Stand by Sit to Stand Bed Transfer Ability Supervision/Stand by,Contact Guard/Hand Hold Sit to Stand Chair Transfer Ability Supervision/Stand by,Contact Guard/Hand Hold Rehab PT IP prob,goals,plan Problems Date of Evaluation: 02/24/22 PT IP Problems Gait,Balance,Self care,Safety Rehab Potential Rehab Potential Good Equipment Needs
--- NOTE | 2022-02-24 12:54 | EXP.ACUTE.PN ---
Subjective *Date: 02/24/22 *Time: 13:01 Interval history: Continues to complain of waxing and waning neurologic symptoms. Daughter at bedside today. Extensive discussion about patient's current condition, stroke concerns, current anticoagulation regimen. Patient denies any chest pain or shortness of breath. In good spirits on exam this morning. Tolerating p.o. intake. Afebrile and hemodynamically stable. Medical Exam Vital signs and Labs for Last 24 Hours: Vital Signs Temp Pulse Pulse Resp BP BP Pulse Ox 02/24/22 11:10 98.2 F 73 16 117/78 93 L 02/24/22 07:31 97.6 F 79 17 128/52 L 94 L 02/24/22 06:26 70 02/24/22 04:00 97.8 F 76 18 109/58 L 96 02/24/22 00:00 80 02/23/22 20:00 70 02/24/22 00:00 98.7 F 83 19 96/60 L 95 02/23/22 19:42 97.9 F 78 18 107/53 L 94 L 02/23/22 16:00 80 02/23/22 15:07 98.7 F 81 17 111/56 L 95 Intake and Output 02/23/22 02/24/22 02/24/22 23:59 07:59 15:59 Intake Total 240 / 1489 1181 / 1181 Output Total 800 / 1150 600 / 600 0 / 600 Balance -560 / 339 581 / 581 0 / 581 Intake: Intake, Oral Amount 240 / 780 360 / 360 Intake, Total IV Amount 821 / 821 0.9 % Sodium Chloride 1,000 ml 821 / 821 @ 50 mls/hr IV .Q20H [facility] Rx#: [id number] Output: Output, Urine Amount 800 / 1150 600 / 600 0 / 600 Other: Number of Unmeasured Voids 1 1 Weight 74.026 kg Patient Weight 02/24/22 23:59 Weight 74.026 kg Laboratory Results - last 24 hr 02/24/22 07:03: WBC 14.4 H, RBC 3.76 L, Hgb 11.8 L, Hct 35.3 L, MCV 93.8, MCH 31.3 H, MCHC 33.4, RDW 14.2, Plt Count 195, MPV 7.5, Neut % (Auto) 69.4, Lymph % (Auto) 22.3, [place] % (Auto) 4.8, Eos % (Auto) 2.9, Baso % (Auto) 0.6, Neut # (Auto) 10.0 H, Lymph # (Auto) 3.2, [place] # (Auto) 0.7, Eos # (Auto) 0.4, Baso # (Auto) 0.1 02/24/22 07:03: Sodium 139, Potassium 4.3, Chloride 110 H, Carbon Dioxide 23, Anion Gap 10.3, BUN 15 D, Creatinine 1.00, Estimated Creat Clear 52, Estimated GFR 53 L, Est GFR ( Amer) 64, Glucose 100, Calcium 9.3, Total Bilirubin 0.3, AST 21, ALT 12, Alkaline Phosphatase 95, Total Protein 5.4 L, Albumin 2.8 L, Globulin 2.6, Albumin/Globulin Ratio 1.1 I & O for Labs for Last 24 Hours: Intake & Output 02/21/22 02/22/22 02/23/22 02/24/22 23:59 23:59 23:59 23:59 Intake Total 1180 / 1180 1489 / 1489 1181 / 1181 Output Total 2300 / 2300 1150 / 1150 600 / 600 Balance -1120 / -1120 339 / 339 581 / 581 Weight 75 kg 75 kg 74.026 kg Microbiology Reports for the Last 24 Hours: Microbiology 02/23/22 10:25 Sputum - Expectorated Sputum Gram Stain - Final Constitutional: Present no acute distress, average body habitus and cooperative Head: Present atraumatic and normocephalic ENT: Present normal exam Neck: Present normal inspection Respiratory: Present CTA bilaterally; Absent wheezes or crackles Cardiac: Present Reg Rate and Rhythm and S1/S2 GI: Present soft and distention; Absent tenderness Extremities: Present normal inspection Skin: Present intact; Absent cyanosis or erythema Comment:: Mild droop in left corner of mouth on smile. Remainder of cranial nerves intact. No weakness in upper or lower extremities on exam today. Tingling sensation in digits 3 through 5 on left hand. Ambulating with minimal assistance. Able to transfer to bedside commode without assistance Assessment and Plan *Assessment and plan (1) CVA (cerebral vascular accident): Status: Acute Category: Medical Code(s): I63.9 - Cerebral infarction, unspecified (2) Obstructive pneumonia: Status: Acute Category: Medical Code(s): J18.9 - Pneumonia, unspecified organism (3) UTI (urinary tract infection): Status: Acute Category: Medical Code(s): N39.0 - Urinary tract infection, site not specified (4) NSTEMI (non-ST elevated myocardial infarction): Status: Acute Category: Medical
--- NOTE | 2022-02-24 13:48 | PC.NURSE ---
Spoke with bed placement stated that there are a few d/c's today. After 1729 she would call to let me know if they have a room available.
--- NOTE | 2022-02-24 18:24 | PC.NURSE ---
Iva from no beds available. Told Dr. Cantu.
--- NOTE | 2022-02-24 20:00 | PC.NURSE ---
Pt is A/ox4. She has been up to the chair a few times during my shift. She has been complaining of right thigh pain. We got prednisone ordered for her to try and help with the pain. She has tolerated her diet well today. She is still on the waitlist for CB. Spoke with estephania and stated that there were no beds available for her today. She is RA. no complaints at this current time.
[2022-02-25] VITALS: PULSE 90
[2022-02-25 04:00] VITALS: BP 145/66; PULSE 70; PULSE 72; RESP 18; TEMP 36.4; O2SAT 97
--- NOTE | 2022-02-25 04:43 | PC.NURSE ---
NO ACUTE CHANGES SINCE PREVIOUS ASSESSMENT. PT HAS RESTED INTERMITTENTLY THIS SHIFT. LUNG SOUNDS ARE WHEEZY BILATERALLY. TOLERATING ROOM AIR WELL. PT HAS BEEN AMBULATING TO THE BATHROOM INDEPENDENTLY THIS SHIFT. NIH SCALES HAVE BEEN 2 THIS SHIFT. SLIGHT FACIAL DROOP ON THE LEFT SIDE AND DRIFTING IN THE LEFT LOWER EXTREMITY. REMAINS ALERT AND ORIENTED. PT HAS C/O RIGHT HIP/LEG PAIN X1 THIS SHIFT AND WAS MEDICATED PER JUL. VSS.
--- NOTE | 2022-02-25 05:28 | PC.NURSE ---
[facility] WITH [facility] CALLED TO UPDATE, STILL NO BED AVAILABLE.
[2022-02-25 05:39] VITALS: BMI 26.5
[2022-02-25 07:21] LABS: Basophils # 0.1 K/mm3 (0-0.2); Basophils % 0.5 % (0.1-2.0); Eosinophils # 0.4 K/mm3 (0.0-0.4); Eosinophils % 3.1 % (0.1-12.0); Hematocrit 33.7 % (37.0-47.0); Hemoglobin 11.4 g/dL (12.2-16.2); Lymphocytes # 3.2 K/mm3 (0.7-4.5); Lymphocytes % 24.1 % (10-50); Mean Corpuscular HGB Conc 33.8 g/dL (31.8-35.4); Mean Corpuscular Hemoglobin 31.1 pg (27.0-31.2); Mean Corpuscular Volume 91.9 fl (81-99); Mean Platelet Volume 7.8 fl (7.4-10.4); Monocytes # 0.6 K/mm3 (0.1-1.0); Monocytes % 4.6 % (1.7-9.3); Neutrophils # 8.9 K/mm3 (1.8-7.8); Neutrophils % 67.8 % (37.0-80.0); Platelet Count 187 K/mm3 (142-424); Red Blood Count 3.66 M/mm3 (4.20-5.40); Red Cell Distribution Width 14.1 % (11.5-17.5); White Blood Count 13.1 K/mm3 (4.8-10.8)
[2022-02-25 07:29] LABS: Chloride 107 mmol/L (98-107)
--- NOTE | 2022-02-25 07:29 | EXP.DC.SUM ---
General Admission date:: 02/22/22 Discharge date: 02/25/22 HPI HPI HPI: With past medical history of recent diagnosis of adenocarcinoma, DVT on Eliquis who presents as a transfer from [facility] for NSTEMI. She reportedly was talking on the phone this evening around 8:30 PM and noticed some left hand shaking with some difficulty speaking. She reports that the symptoms resolved within minutes. She did have another episode of this and was noted by her family to be leaning towards the left when she was walking. At that point she presented to the outside hospital. Outside hospital imaging negative for hemorrhagic or ischemic event on Noncon CT of the head. She did note to have a elevated troponin on the high-sensitivity scale of 139. Dr. Padron was consulted and recommended transfer here for further evaluation. She received 300 of Plavix at the outside hospital and transferred here for further cardiac evaluation. On my exam patient is awake alert and oriented without any distress. She does endorse same history of dysarthria and left hand weakness around 8 PM. She denies any chest pain or shortness of breath. She does endorse mild epigastric pain that is typical to her that reoccurred this evening but has subsided. She has very close follow-up with the [facility] regarding her adenocarcinoma. She was supposed to have a cardiology appointment tomorrow. She is scheduled for a PET scan and an MRI of her brain for cancer staging on March 25. Given patient's neurological symptoms that began this admission. Will obtain repeat labs now to see if renal status will support CTA of the head to rule out LVO. Will obtain brain MRI in a.m. Regarding cardiology services, Dr. Padron is aware patient and will see patient in the morning. He request patient to be placed on heparin drip and be made n.p.o. She is admitted to the hospitalist service for further evaluation management. 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 Was on Eliquis for VTE prophylaxis.? Presented with strokelike symptoms as transfer from outside hospital where she had concern for an NSTEMI.? At this time patient's primary issue is multifocal stroke, left-sided fluctuating motor and sensory deficits, pneumonia, hematuria, UTI.? Problems addressed as follows: Multifocal stroke -Clinical presentation concerning for stroke. Initial CT did not show stroke findings however MRI obtained showing ischemic lesions, most prominent in right occipital lobe.? Suspected secondary to her adenocarcinoma creating a hypercoagulable state.? Was initially on heparin drip and transition to Lovenox. Tolerating therapeutic Lovenox during admission. [facility] was initially contacted for transfer, patient was on wait list during admission without any progress in transferring. Clinically she remained stable for about 72 hours with her stroke symptoms with no further progression. Able to tolerate p.o. intake, ambulate independently, with minor left-sided deficits. Discussed case with neuro team at in regard to close follow-up. Given patient's clinical stability, I do not feel that there is an urgent need at this time for transfer and would benefit from close follow-up as an outpatient with neuro clinic. Appointment scheduled prior to discharge. Patient's other providers including her oncologist and cardiology are at [facility]. I feel this will provide a better multidisciplinary approach to her care. -Evaluated by PT and OT during admission, patient stable for home health with assistance at home Hematuria UTI -Concerning for UTI on admission. Ultrasound showing bladder diverticulum.? Renal ultrasound showing kidney stones that are nonobstructing.? Hematuria improved during admission. Started on antibiotics for UTI with ceftriaxone and azithromycin on admission. Transitioned to cefdin
[2022-02-25 07:30] LABS: Sodium 138 mmol/L (136-145)
[2022-02-25 07:32] LABS: Alanine Aminotransferase 12 U/L (12-78); Alkaline Phosphatase 98 U/L (38-126); Aspartate Amino Transferase 24 U/L (14-36); Bilirubin,Total 0.2 mg/dl (0.2-1.3); Blood Urea Nitrogen 15 mg/dl (7-17); Carbon Dioxide 25 mmol/L (22.0-30.0); Creatinine Clearance Estimated 50 mL/min (50-200); Estimated Glomerular Filt Rate 53 ml/min (>60); GFR (African American) 64 ML/MIN (>60)
[2022-02-25 07:33] LABS: Albumin/Globulin Ratio 1.1 (1.1-1.8); Calcium 9.6 mg/dl (8.4-10.2); Globulin 2.8 g/dL (1.3-3.2); Glucose 103 mg/dl (74-100); Total Protein,Serum 5.8 g/dl (6.3-8.2)
[2022-02-25 08:00] VITALS: BP 125/72; PULSE 85; RESP 18; TEMP 36.6; O2SAT 93
--- NOTE | 2022-02-25 08:58 | CT_ITS ---
FINAL REPORT CLINICAL HISTORY: Right leg pain. FINDINGS: CT RIGHT FEMUR WITHOUT CONTRAST TECHNIQUE: Axial, reformatted, and 3D images were obtained of the right femur. This study was performed with techniques to keep radiation doses as low as reasonably achievable, (ALARA). Individualized dose reduction techniques using automated exposure control or adjustment of mA and/or kV according to the patient's size were employed. FINDINGS: There is no fracture or dislocation The joint space is preserved. There is an 8 x 5 x 5 cm hematoma in the biceps femoris muscle consistent with moderate muscle injury. Other musculature appears intact. IMPRESSION: Hematoma in the biceps femoris muscle consistent with a moderate muscle injury. Reviewed, Interpreted and Dictated by Talib Kraus III, MD Transcribed by Leanna Cooper Authenticated and [facility]
[2022-02-25 11:22] VITALS: BP 124/61; PULSE 74; RESP 17; TEMP 36.4; O2SAT 95
--- NOTE | 2022-02-25 13:50 | EXP.CARD.PN ---
Subjective Subjective Date: 02/25/22 Time: 12:00 Principal diagnosis: Lung CA, CVA, CM, Hematuria Interval history: 81 yo WF in bed in NAD. Complaint of right leg pain continues. Workup in progress per Dr. Cantu. No further episodes of slurred speech since stopping coreg and entresto. Telemetry shows NSR. Still waiting ofr bed at [facility]. Exam Data for Last 24 hours Vital signs and Labs for Last 24 Hours: Temp Pulse Resp BP Pulse Ox 97.6 F 74 17 124/61 95 02/25/22 11:22 02/25/22 11:22 02/25/22 11:22 02/25/22 11:22 02/25/22 11:22 Laboratory Results - last 24 hr 02/25/22 07:04: WBC 13.1 H, RBC 3.66 L, Hgb 11.4 L, Hct 33.7 L, MCV 91.9, MCH 31.1, MCHC 33.8, RDW 14.1, Plt Count 187, MPV 7.8, Neut % (Auto) 67.8, Lymph % (Auto) 24.1, [place] % (Auto) 4.6, Eos % (Auto) 3.1, Baso % (Auto) 0.5, Neut # (Auto) 8.9 H, Lymph # (Auto) 3.2, [place] # (Auto) 0.6, Eos # (Auto) 0.4, Baso # (Auto) 0.1 02/25/22 07:04: Sodium 138, Potassium 4.0, Chloride 107, Carbon Dioxide 25, Anion Gap 10.0, BUN 15, Creatinine 1.00, Estimated Creat Clear 50, Estimated GFR 53 L, Est GFR ( Amer) 64, Glucose 103 H, Calcium 9.6, Total Bilirubin 0.2, AST 24, ALT 12, Alkaline Phosphatase 98, Total Protein 5.8 L, Albumin 3.0 L, Globulin 2.8, Albumin/Globulin Ratio 1.1 I & O for Last 24 hours: Intake & Output 02/23/22 02/24/22 02/25/22 02/26/22 11:59 11:59 11:59 11:59 Intake Total 2189 / 2189 1661 / 1661 840 / 840 240 / 240 Output Total 1650 / 1650 1400 / 1400 200 / 200 0 / 0 Balance 539 / 539 261 / 261 640 / 640 240 / 240 Weight 165 lb 5.547 oz 163 lb 3.2 oz 159 lb 5 oz Microbiology Reports for the Last 24 Hours: Microbiology 02/23/22 10:25 Sputum - Expectorated Sputum Gram Stain - Final 02/23/22 10:25 Sputum - Expectorated Sputum Sputum Culture - Preliminary Constitutional Constitutional: no acute distress *Routine Respiratory Exam Respiratory: Present CTA bilaterally *Routine Cardiovascular Exam Cardiovascular: Present RRR *Routine Extremities Exam Extremities: Absent cyanosis, clubbing or edema *Routine Neurological Exam Neurological: Present alert, oriented X3 and CN II-XII intact Progress Note: A&P Assessment and plan (1) CVA (cerebral vascular accident): Status: Acute (2) Obstructive pneumonia: Status: Acute (3) UTI (urinary tract infection): Status: Acute (4) NSTEMI (non-ST elevated myocardial infarction): Status: Acute (5) Hematuria: Status: Acute (6) Adenocarcinoma: Status: Acute (7) History of DVT (deep vein thrombosis): Status: Acute (8) Nephrolithiasis: Status: Chronic (9) Cardiomyopathy: Status: Chronic Assessment and Plan Assessment and Plan for All Diagnoses:: 1. CVA, bilateral infarcts noted on brain MRI. Now on Lovenox therapy. Awaiting transfer to tertiary center. 2. Cardiomyopathy with NSTEMI (likely type 2 due to recent PE, pneumonia). EF 25-30% with inferior and inferoseptal wall hypokinesis. Septal, anteroseptal and apical solis are akinetic. Patient will need ischemic evaluation in the future but will defer to [facility] due to multiple issues that will need a team to address. Patient is unable to tolerate goal-directed medical therapy for cardiomyopathy due to low blood pressure and recurrent exacerbation of CVA symptoms. 3. Lung cancer, defer to pulmonology and oncology. 4. Hematuria with nephrolithiasis and UTI, on antibiotic therapy. Continue to monitor H&H. Hemoglobin 11.4 today 5. Dyslipidemia, on statin therapy. 6. Right leg pain, noted to have hematoma of biceps femoris on leg CT. Awaiting transfer to [facility].
--- NOTE | 2022-02-25 13:52 | SW/DCPLANNER ---
Addendum entered by Humaira Garcia 02/25/22 14:50: Mayra bahena/ Yumiko stated that services will begin tomorrow for this patient. Original Note: Patient information/order has been faxed to [facility] for home health services. Patient will discharge later today.
--- NOTE | 2022-02-26 14:19 | CARE MANAGER ---
Return phone call from patient's son. States patient is doing well. 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 Denies any questions or concerns. SHAWN Cabrera
== END 2022-02-25 15:10 | disposition home health service (06) | DRG 64 ==
PROVIDERS: Nurse Practitioner Acute Care; Admitting Provider Emergency Medicine; PCP Family Medicine; Visit Provider Emergency Medicine
DX: I63.9 Cerebral infarction, unspecified (principal); I21.4 Non-ST elevation (NSTEMI) myocardial infarction; I26.99 Other pulmonary embolism without acute cor pulmonale; J18.9 Pneumonia, unspecified organism; N39.0 Urinary tract infection, site not specified; C34.12 Malignant neoplasm of upper lobe, left bronchus or lung; I42.9 Cardiomyopathy, unspecified; Z86.718 Personal history of other venous thrombosis and embolism; E78.00 Pure hypercholesterolemia, unspecified; I48.0 Paroxysmal atrial fibrillation; R31.9 Hematuria, unspecified; E78.5 Hyperlipidemia, unspecified; N20.0 Calculus of kidney; R47.1 Dysarthria and anarthria; Z85.72 Personal history of non-Hodgkin lymphomas
CPT/HCPCS: 36415; 70450; 70496; 70498; 70551; 71045; 73700; 76770; 76857; 80048; 80053; 80061; 80076; 81001; 83036; 83735; 84484; 85007; 85025; 85730; 87070; 87086; 87088; 87186; 87205; 93005; 93306; 97116; 97162; 97166; 97530; C9803; J0456; J0696; Q9967; U0003; U0005

== ENCOUNTER → 2022-03-15 13:02 | Outpatient (CLI) | payer MEDICARE, BC, SELFPAY | PROVIDERS: PCP Family Medicine; Visit Provider Family Medicine | DX: G47.33 Obstructive sleep apnea (adult) (pediatric) (principal) | CPT/HCPCS: G0399 ==